=== PATIENT | male | born 1950 | race Caucasian/White ===

== ENCOUNTER 2021-10-28 13:38 | Emergency (ER) | payer MEDICARE, OTHER ==
[~2021-10-28] VITALS: Ht 165.1 cm; Wt 101.6 kg
--- NOTE | 2021-10-28 13:52 | NUR ---
TO ER BED 9, [id number] FRM HOME, "SPITTING OUT BLOOD" X 1 HOUR. DENIES ANY PAIN, ON BLOOD THINNER, AAOX3, BREATHING EVEN AND NON LABORED, CONNECTED TO MONITOR
--- NOTE | 2021-10-28 14:10 | NUR ---
SALINE LOCK ESTABLISHED AND BLOOD DRAWN
[2021-10-28 14:25] LABS: BASOPHILS # (AUTO) 0.1 K/uL (0.0-0.2); BASOPHILS % (AUTO) 0.8 % (0.0-2.0); EOSINOPHILS % (AUTO) 0.6 % (0.0-6.0); HEMATOCRIT 38 % (39-51); HEMOGLOBIN 12.6 g/dL (13.5-17.5); LYMPHOCYTES # (AUTO) 1.3 K/uL (0.8-4.8); LYMPHOCYTES % (AUTO) 14.1 % (20.0-44.0); MEAN CORPUSCULAR HGB CONC 33 g/dl (31.0-36.0); MEAN CORPUSCULAR VOLUME 96 fL (80-96); MONOCYTES # (AUTO) 0.9 K/uL (0.1-1.30); MONOCYTES % (AUTO) 9.9 % (2.0-12.0); NEUTROPHILS # (AUTO) 6.8 K/uL (1.8-8.9); NEUTROPHILS % (AUTO) 74.6 % (43.0-81.0); PLATELET COUNT (AUTO) 371 K/uL (150-450); RED BLOOD CELL COUNT(AUTO) 3.96 MIL/uL (4.5-6.0); WHITE BLOOD COUNT (AUTO) 9.1 K/uL (4.3-11.0)
[2021-10-28 14:35] LABS: CALCIUM, SERUM 9.3 mg/dL (8.5-10.1); CREATININE 2.6 mg/dL (0.6-1.3); POTASSIUM 3.6 mmol/L (3.5-5.1)
[2021-10-28] MEDS ORDERED: ASPI-1420 PO (14:50)
[2021-10-28] MEDS ORDERED: CARV6.252 PO (14:50)
[2021-10-28] MEDS ORDERED: CALC0.253 PO (14:50)
[2021-10-28] MEDS ORDERED: FURO40TA5 PO (14:50)
[2021-10-28] MEDS ORDERED: LACO100T2 PO (14:50)
[2021-10-28] MEDS ORDERED: ROSU40TA23 PO (14:50)
[2021-10-28] MEDS ORDERED: HYDR100T27 PO (14:50)
[2021-10-28] MEDS ORDERED: ISOS60TA72 PO (14:50)
[2021-10-28] MEDS ORDERED: PHEN97.22 PO (14:50)
[2021-10-28] MEDS ORDERED: CHOL100062 PO (14:50)
[2021-10-28] MEDS ORDERED: CLOP75TA15 PO (14:50)
[2021-10-28] MEDS ORDERED: PRED5TAB PO (14:50)
[2021-10-28] MEDS ORDERED: VALS160T29 PO (14:51)
[2021-10-28] MEDS ORDERED: IV NS 0.9% 1,000 ML BAG IV ONE (15:00)
--- NOTE | 2021-10-28 15:05 | NUR ---
COVID SWAB COLLLECTED AND SENT TO LAB
[2021-10-28 15:44] LABS: BILIRUBIN,DIRECT 0.1 mg/dL (0.0-0.2); BILIRUBIN,TOTAL 0.3 mg/dL (0.2-1.0)
[2021-10-28 15:45] LABS: ALBUMIN 3.3 g/dL (3.4-5.0); TOTAL PROTEIN, SERUM 7.6 g/dL (6.4-8.2)
--- NOTE | 2021-10-28 17:07 | NUR ---
IV removed. Catheter intact and site benign. Pressure and 4x4 applied to site. No bleeding noted.Patient discharged to home in stable condition. Written and verbal after care instructions given. Patient verbalizes understanding of instruction.
[2021-10-28 17:09] VITALS: BP 126/78
== END 2021-10-28 17:09 | disposition left against medical advice (07) ==
LOC: ER 13:54
DX: R04.2 Hemoptysis (principal); Z20.822 Contact with and (suspected) exposure to COVID-19; Z79.01 Long term (current) use of anticoagulants; Z53.29 Procedure and treatment not carried out because of patient's decision for other reasons; I11.9 Hypertensive heart disease without heart failure; Z86.69 Personal history of other diseases of the nervous system and sense organs
CPT/HCPCS: 36415; 71045; 80048; 80076; 85025; 85730; 86850; 87081; 87426; 96360; 99284; J7030; C9803

== ENCOUNTER 2025-07-01 02:31 | Inpatient (IN) | payer MEDICARE, OTHER ==
[~2025-07-01] VITALS: Ht 167.6 cm; Wt 102.1 kg
[~2025-07-01 02:31] MED LIST: ASPI-1420 PO; CALC0.253 PO; CARV6.252 PO; CHOL100062 PO; CLOP75TA15 PO; FURO40TA5 PO; HYDR100T27 PO; ISOS60TA72 PO; LACO100T2 PO; PHEN97.22 PO; PRED5TAB PO; ROSU40TA23 PO; VALS160T29 PO
[2025-07-01] MEDS: IV NS 0.9% 1,000 ML BAG IV ONE (02:50)
[2025-07-01 03:01] LABS: PLATELET COUNT (AUTO) 192 K/uL (150-450); RED BLOOD CELL COUNT(AUTO) 3.56 MIL/uL (4.5-6.0); RED CELL DISTRIBUTION WIDTH 16.3 % (11.5-15.0); WHITE BLOOD COUNT (AUTO) 5.6 K/uL (4.3-11.0)
[2025-07-01 03:14] LABS: INR 0.97 (0.91-1.10)
[2025-07-01 03:15] LABS: ASPARTATE AMINOTRANSFERASE 19 U/L (15-37); CALCIUM, SERUM 9.5 mg/dL (8.5-10.1); CREATININE 2.9 mg/dL (0.6-1.3); SODIUM SERUM 141 mmol/L (136-145); TOTAL PROTEIN, SERUM 6.3 g/dL (6.4-8.2); UREA NITROGEN, BLOOD 44 mg/dL (7-18)
[2025-07-01] MEDS ORDERED: POTASSIUM CHLORIDE 20 MEQ TAB.PRT.SR PO ONE (03:49)
[2025-07-01] MEDS ORDERED: ASPIRIN 325 MG TABLET ONE (03:49)
[2025-07-01] MEDS: ASPIRIN 325 MG TABLET PO ONE (03:54)
[2025-07-01] MEDS: POTASSIUM CHLORIDE 20 MEQ TAB.PRT.SR PO ONE (03:54)
[2025-07-01] MEDS ORDERED: ACETAMINOPHEN 325 MG TABLET PO PRN (04:00)
[2025-07-01] MEDS ORDERED: Z GUARD REMEDY 4 OZ OINT TP PRN (04:00)
[2025-07-01] MEDS ORDERED: ONDANSETRON HCL/PF 4 MG/2 ML VIAL IVP PRN (04:00)
[2025-07-01] MEDS ORDERED: ENOXAPARIN SODIUM 40 MG/0.4 ML DISP.SYRIN SQ SCH (04:00)
[2025-07-01 05:47] VITALS: BP 143/67; TEMP 97.5; O2SAT 100
[2025-07-01 08:00] VITALS: BP 151/66; TEMP 97.1; O2SAT 99
[2025-07-01] MEDS: CLOPIDOGREL BISULFATE 75 MG TABLET PO SCH (08:27)
[2025-07-01] MEDS: PANTOPRAZOLE 40 MG TABLET.DR PO SCH (08:27)
[2025-07-01] MEDS ORDERED: ROSU40TA PO (08:49)
[2025-07-01] MEDS ORDERED: EMPA10TA PO (08:49)
[2025-07-01] MEDS ORDERED: HYDR100T27 PO (08:49)
[2025-07-01] MEDS ORDERED: MYCO250C8 PO (08:49)
[2025-07-01] MEDS ORDERED: ISOS60TA72 PO (08:49)
[2025-07-01] MEDS ORDERED: LACO100T2 PO (08:49)
[2025-07-01] MEDS ORDERED: TERA5CAP4 PO (08:49)
[2025-07-01] MEDS ORDERED: FURO40TA5 PO (08:49)
[2025-07-01] MEDS ORDERED: PHEN97.22 PO (08:49)
[2025-07-01] MEDS ORDERED: CALC0.253 PO (08:49)
[2025-07-01 10:30] LABS: PHOSPHORUS 4.3 mg/dL (2.5-4.9)
[2025-07-01] MEDS ORDERED: MYCOPHENOLATE MOFETIL 250 MG CAPSULE PO SCH (17:00)
[2025-07-01] MEDS ORDERED: Medication Not On Formulary EA (Phenobarbital 97.2 MG) PO SCH (17:00)
[2025-07-01] MEDS ORDERED: LACOSAMIDE 50 MG TABLET PO SCH (17:00)
[2025-07-01] MEDS ORDERED: CARVEDILOL 6.25 MG TABLET PO SCH (17:00)
[2025-07-02] MEDS ORDERED: CALCITRIOL 0.25 MCG CAPSULE PO SCH (09:00)
[2025-07-02] MEDS ORDERED: EMPAGLIFLOZIN 10 MG TABLET PO SCH (09:00)
[2025-07-02] MEDS ORDERED: CHOLECALCIFEROL 1,000 UNIT TABLET (VIT D3) PO SCH (09:00)
[2025-07-02] MEDS ORDERED: ASPIRIN 81 MG TAB.CHEW PO SCH (09:00)
[2025-07-02] MEDS ORDERED: LOSARTAN POTASSIUM 50 MG TABLET PO SCH (09:00)
[2025-07-02] MEDS ORDERED: TERAZOSIN HCL 5 MG CAPSULE PO SCH (09:00)
[2025-07-02] MEDS ORDERED: ATORVASTATIN 40 MG TABLET PO SCH (09:00)
[2025-07-02] MEDS ORDERED: ISOSORBIDE MONONITRATE 60 MG TAB.SR.24H PO SCH (09:00)
[2025-07-02] MEDS ORDERED: ASPIRIN EC 81 MG TABLET.DR PO SCH (09:00)
[2025-07-02] MEDS ORDERED: CLOPIDOGREL BISULFATE 75 MG TABLET PO SCH (09:00)
== END 2025-07-01 11:45 | disposition left against medical advice (07) | DRG 698 ==
LOC: ER 02:36 → TELE 03:57 → TELE1 05:36 → TELE-TD 07:33
PROVIDERS: ADMIT Nurse Practitioner Acute Care; ATTEND Nurse Practitioner Acute Care
DX: T86.12 Kidney transplant failure (principal); I21.A1 Myocardial infarction type 2; N17.0 Acute kidney failure with tubular necrosis; R53.1 Weakness; E78.5 Hyperlipidemia, unspecified; E87.6 Hypokalemia; N18.9 Chronic kidney disease, unspecified; Z95.1 Presence of aortocoronary bypass graft; Z79.84 Long term (current) use of oral hypoglycemic drugs; G40.909 Epilepsy, unspecified, not intractable, without status epilepticus; I12.9 Hypertensive chronic kidney disease with stage 1 through stage 4 chronic kidney disease, or unspecified chronic kidney disease; Y92.009 Unspecified place in unspecified non-institutional (private) residence as the place of occurrence of the external cause; E11.22 Type 2 diabetes mellitus with diabetic chronic kidney disease; Y83.0 Surgical operation with transplant of whole organ as the cause of abnormal reaction of the patient, or of later complication, without mention of misadventure at the time of the procedure; Z53.29 Procedure and treatment not carried out because of patient's decision for other reasons; Z79.899 Other long term (current) drug therapy; Z79.624 Long term (current) use of inhibitors of nucleotide synthesis; Z79.52 Long term (current) use of systemic steroids; Z87.891 Personal history of nicotine dependence
CPT/HCPCS: 36415; 70450-TC; 71045-TC; 80048-TC; 80076-TC; 82962-TC; 83735-TC; 84100-TC; 84484-TC; 85025-TC; 85730-TC; G0378; J7030